=== PATIENT | female | born 1980 | race Caucasian/White ===

== ENCOUNTER 2017-10-14 18:39 | Emergency (ER) | payer BC ==
[2017-10-14 19:20] VITALS: BP 108/66
--- NOTE | 2017-10-14 20:25 | UC ---
Respiratory Complaint HPI - HPI Summary HPI Summary: Pt presents with a 3 day history of sinus congestion/pressure/pain. She tells me that she gets chronic sinus infections and is on antibiotics ever few months. She was recently cleaning out her wood stove and dust blew into her face - she attributes her current symptoms to this. She has not tried anything OTC. Denies fever, chills, SOB, ST, earache, N/V/D/C. - History of Current Complaint Chief Complaint: UCGeneralIllness Stated Complaint: SINUS Time Seen by Provider: 10/14/17 20:21 Hx Obtained From: Patient Onset/Duration: Gradual Onset Timing: Constant Severity Initially: Mild Severity Currently: Moderate Pain Intensity: 7 Pain Scale Used: 0-10 Numeric Aggravating Factors: Allergens Associated Signs And Symptoms: Positive: Sinus Discomfort - Allergies/Home Medications Allergies/Adverse Reactions: Allergies Allergy/AdvReac Type Severity Reaction Status Date / Time Latex Allergy Rash Verified 10/14/17 19:20 Penicillins Allergy See Comment Verified 10/14/17 19:20 Home Medications: Home Medications celeCOXIB CAP* [Celebrex CAP*] 10/14/17 [History] PMH/Surg Hx/FS Hx/Imm Hx Previously Healthy: Yes - Surgical History Surgical History: Yes Surgery Procedure, Year, and Place: Gallbladder, Gastric Bypass 2 years ago, tonsilectomy and adenoidectomy, foot surgery, pilonidal cyst removal, tummy tuck , hernia repair - Social History Occupation: Employed Full-time Lives: Alone Alcohol Use: None Substance Use Type: None Smoking Status (MU): Former Smoker Type: Cigarettes Have You Smoked in the Last Year: Yes When Did the Patient Quit Smoking/Using Tobacco: Quit mostly a year ago Household Exposure Type: Cigarettes Review of Systems Constitutional: Negative Skin: Negative Eyes: Negative ENT: Nasal Discharge, Sinus Congestion, Sinus Pain/Tenderness Respiratory: Negative Cardiovascular: Negative Gastrointestinal: Negative All Other Systems Reviewed And Are Negative: Yes Physical Exam Triage Information Reviewed: Yes Appearance: Well-Appearing, Well-Nourished Vital Signs: Initial Vital Signs Temp 98.1 F 10/14/17 19:13 Pulse 98 10/14/17 19:13 Resp 16 10/14/17 19:13 BP 108/66 10/14/17 19:13 Pulse Ox 100 10/14/17 19:13 Vital Signs Reviewed: Yes Eyes: Positive: Conjunctiva Clear ENT: Positive: Hearing grossly normal, Pharynx normal, Nasal congestion, Nasal drainage, TMs normal, Sinus tenderness. Negative: Pharyngeal erythema, TM bulging, TM dull, TM red, Tonsillar swelling, Tonsillar exudate Neck: Positive: Supple, Nontender, No Lymphadenopathy Respiratory: Positive: Chest non-tender, Lungs clear, Normal breath sounds, No respiratory distress, No accessory muscle use Cardiovascular: Positive: RRR, No Murmur, Pulses Normal UC Diagnostic Evaluation - Laboratory O2 Sat by Pulse Oximetry: 100 Respiratory Course/Dx - Course Course Of Treatment: Sinusitis - Zpak. Pt asks for 2 tabs of diflucan as she "always gets a yeast infection after antibiotics". Discussed that Zpak is not usually a common culprit of yeast infections - pt was insistent that she has gotten yeast infections from Zpak in the past. Discussed that she may need an ENT referral - declined at this time. - Differential Dx/Diagnosis Differential Diagnosis/HQI/PQRI: Foreign Body, Influenza, Sinusitis Provider Diagnoses: Sinusitis Discharge - Discharge Plan Condition: Stable Disposition: HOME Prescriptions: Azithromycin TAB* [Zithromax TAB (Z-CAROLIN) 250 mg #6 tabs] 2 tab PO .TODAY, THEN 1 DAILY #1 carolin Fluconazole [Diflucan 100 mg tab] 100 mg PO DAILY #2 tab Patient Education Materials: Sinusitis (ED) Referrals: No Primary Care Phys,NOPCP [Primary Care Provider] - Additional Instructions: If you develop fever, SOB, chest pain, new or worsening symptoms - please call our office or go to ED.
== END 2017-10-14 20:40 | disposition home or self-care (01) ==
LOC: UCEAST 18:39
DX: J32.9 Chronic sinusitis, unspecified (principal); Z87.891 Personal history of nicotine dependence; Z88.0 Allergy status to penicillin
CPT/HCPCS: 99201; G0463